=== PATIENT | female | born 1970 | race Caucasian/White ===

== ENCOUNTER → 2019-09-23 | Outpatient (CLI) | payer OTHER | LOC: SJCVCIMAG 08:25 | PROVIDERS: ATTEND Internal Medicine | DX: R00.0 Tachycardia, unspecified (principal); G43.909 Migraine, unspecified, not intractable, without status migrainosus ==

== ENCOUNTER → 2019-10-17 | Outpatient (CLI) | payer OTHER ==
[~2019-10-17] VITALS: Ht 162.6 cm; Wt 88.9 kg
[~2019-10-17] MED LIST: CLARITIN10 M3 PO; NAPROXEN250 MG PO
[2019-10-17 08:26] VITALS: BP 116/84
[2019-10-17 08:54] LABS: HEMATOCRIT 40.7 % (37.0-47.0); HEMOGLOBIN 13.8 gm/dL (12.0-15.0); MCH 30.7 pg (26.0-34.0); MCHC 33.9 g/dL (28.0-37.0); MCV 90.6 fL (80.0-100.0); RBC 4.49 mil/uL (4.20-5.00); RDW 12.9 % (10.5-14.5); WBC 7.9 thou/uL (4.0-11.0)
--- NOTE | 2019-10-17 09:21 | EKG ---
[facility] [place] [address] ELECTROCARDIOGRAM REPORT Name: NEGRITO DENNYLICarolina Tracy Room #: REG [facility]#: [id number] Admission: 10/17/19 Attend Phys: Hany Powell Discharge: Date of : 74 Report #: [id number] THIS REPORT FOR: cc: [facility] - Clinic physician unknown [facility] - Clinic physician unknown Moiz Sung MD [facility] ~ THIS REPORT FOR: //name// [facility] Test Date: 2019-10-17 Test Time: 08:32:18 Pat Name: CIARAN DENNY Department: Room: Gender: [employer] Supervisor: [facility] : 1970 Requested By: Hany Powell Order Number: [id number] MD: Moiz Sung Measurements Intervals [place] Rate: 76 P: 47 NV: 164 QRS: 9 QRSD: 93 T: 22 QT: 360 QTc: 405 Interpretive Statements Sinus rhythm Nonspecific T wave abnormality No previous ECG available for comparison Electronically Signed On 10-17-2019 9:20:43 CDT by Moiz Sung [email or web address] <ELECTRONICALLY SIGNED> By: Moiz Sung MD, [facility] 10/17/19919 1 1 Moiz Sung MD, [facility] /EPI
[2019-10-17 09:29] LABS: CALCIUM 8.3 mg/dL (8.5-10.1); CREATININE 0.8 mg/dL (0.6-1.0); POTASSIUM 3.5 mmol/L (3.5-5.1)
--- NOTE | 2019-10-26 00:13 | CATHLAB ---
[facility] [place] [address] INVASIVE PROCEDURE REPORT Name: EDUINCIARAN Demarcus Room #: REG [facility]#: [id number] Admission: 10/17/19 Attend Phys: aHny Powell Discharge: Date of : 74 Report #: [id number] THIS REPORT FOR: cc: [facility] - Clinic physician unknown [facility] - Clinic physician unknown Hany Powell MD ~ APPROVED REPORT Study performed: 10/17/2019 09:27:25 Patient Details The patient is a 49 year-old female Event Personnel Hany Powell Kettle Girl, Jaguar Roe RN RN, Izabel Calhoun RTR, Kelsey Porras Alison RT(R)() Monitor Procedures Performed Art Access - R femoral artery* Left Heart Cath w/or w/o Coronaries [id number] [facility] Hemostasis with Manual pressure 89804 Initial Mod Sed Same Phys/QHP Gr [id number] [id number] Mod Sed Same Phys/QHP Ea 220338, Supervision of conscious sedation. Indication Positive stress test Procedure Narrative The Right Groin^ was infiltrated with 1% Lidocaine subcutaneous anesthesia. A PINNACLE 4FR Sheath #[id number] sheath was inserted into the RFA 4F^. Coronary angiography was performed using coronary diagnostic catheters. The right coronary system was accessed and visualized with a JR4 catheter. The left coronary system was accessed and visualized with a JL4 catheter. The left ventricle was accessed and visualized with a PIGTAIL catheter. Hemostasis was obtained with manual pressure following sheath removal without any complications. The patient tolerated the procedure well and there were no complications associated with the procedure. There was no hematoma. Intraoperative Conscious Sedation Versed 2 mg Fluoro Time: 1.50 minutes [facility] [address] [facility] [place] [address] INVASIVE PROCEDURE REPORT Name: CIARAN DENNY Room #: [facility]#: [id number] Admission: 10/17/19 Attend Phys: Hany Mirza Discharge: Date of : 74 Report #: [id number] Dose: DAP 2601.40 cGycm2 400 mGy Contrast Type and Amount: Omnipaque 32 ml Coronary Angiography The patient's coronary anatomy is right dominant. Diagnostic Cath Left Main Moderate to large caliber vessel of normal origin that trifurcates into LAD,LCX,and Ramus branches. It is free of significant stenotic lesions LAD Moderate caliber vessel courses in anterior interventricular sulcus giving rise to septal and diagonal braches. In it distal third the vesel rapidly tapers to a string like artery hooking the apes and terminating in the inferoposterior apex. Diagonal 1 small caliber vessel corsing along the anterior-lateral wall free of high grade lesions Circumflex Moderate to large caliber vessel that proceeds along the lateral posterior wall of the left ventricle without highgrade lesions. the circumflex proper terminates in the posterior aspect of the left ventricle OM1 consisting of the circumflex system as stated above Right Coronary Small to moderate caliber vessel of normal origin courses in AV groove giving rise to small caliber long length RV branch which s free of highgrade lesions. The RCA continues to crux of the heart where it gives rise to a small PDA and terminal PLVB R PDA small caliber without significant stenosis Ramus small caliber vessel without significant lesions Left Ventriculography Left Ventriculography was not performed. Hemodynamics The aortic pressure is 110/66 mmHg with a mean of 85 mmHg. The left ventricular pressure is 147/6 mmHg with a mean of mmHg. The left ventricular end diastolic pressure is 23 mmHg. Conclusion 1. Essentially normal Coronary arteries with a rapidly 2. Normal hemodynamics Recommendations [facility] [address] [place] [address] INVASIVE PROCEDURE REPORT Name: CIARAN DENNY [id number] Admission: 10/17/19 Attend Phys: Hany Mirza Discharge: Date of : 74 Report #: [id number] Cardiac Risk Reduction Program Medical Therapy <ELECTRONICALLY SIGNED> By: Hany Powell MD 10/26/19 0013 0013 0013 Hany Powell MD /INF
== END | disposition home or self-care (01) ==
LOC: CATH 07:40
PROVIDERS: ATTEND Internal Medicine
DX: R07.9 Chest pain, unspecified (principal); I25.10 Atherosclerotic heart disease of native coronary artery without angina pectoris; E78.5 Hyperlipidemia, unspecified; G43.909 Migraine, unspecified, not intractable, without status migrainosus; Z98.890 Other specified postprocedural states; Z79.899 Other long term (current) drug therapy